=== PATIENT | female | born 1955 | race Caucasian/White ===

== ENCOUNTER → 2023-10-30 08:29 | Outpatient (REF) | payer MEDICARE, OTHER, SELFPAY | LOC: RCS 08:29 | PROVIDERS: ATTENDING PHYSICIAN Internal Medicine Cardiovascular Disease; FAMILY PHYSICIAN Family Medicine | DX: Q21.0 Ventricular septal defect (principal) | CPT/HCPCS: 93306 ==

== ENCOUNTER → 2024-02-09 11:52 | Outpatient (REF) | payer MEDICARE, OTHER, SELFPAY | LOC: WDC 11:52 | PROVIDERS: ATTENDING PHYSICIAN Nurse Practitioner Family; FAMILY PHYSICIAN Family Medicine | DX: Z12.31 Encounter for screening mammogram for malignant neoplasm of breast (principal) | CPT/HCPCS: 77063; 77067 ==

== ENCOUNTER → 2024-05-12 07:15 | Outpatient (REF) | payer MEDICARE, OTHER, SELFPAY | LOC: PAVMRI 07:15 | PROVIDERS: ATTENDING PHYSICIAN Physician Assistant Medical; FAMILY PHYSICIAN Family Medicine | DX: M48.07 Spinal stenosis, lumbosacral region (principal) | CPT/HCPCS: 72148 ==

== ENCOUNTER → 2025-02-21 14:11 | Outpatient (REF) | payer MEDICARE, OTHER, SELFPAY | LOC: WDC 14:11 | PROVIDERS: ATTENDING PHYSICIAN Family Medicine | DX: Z12.31 Encounter for screening mammogram for malignant neoplasm of breast (principal); E78.2 Mixed hyperlipidemia | CPT/HCPCS: 75571; 77063; 77067 ==

== ENCOUNTER → 2025-03-07 12:14 | Outpatient (REF) | payer MEDICARE, OTHER, SELFPAY | LOC: RAD 12:14 | PROVIDERS: ATTENDING PHYSICIAN Family Medicine | DX: I71.20 Thoracic aortic aneurysm, without rupture, unspecified (principal) | CPT/HCPCS: 71275; Q9967 ==

== ENCOUNTER → 2025-03-17 12:58 | Outpatient (REF) | payer MEDICARE, OTHER, SELFPAY | LOC: HWRCS 12:58 | PROVIDERS: ATTENDING PHYSICIAN Internal Medicine Cardiovascular Disease; FAMILY PHYSICIAN Family Medicine | DX: Q21.0 Ventricular septal defect (principal); I77.819 Aortic ectasia, unspecified site; E78.5 Hyperlipidemia, unspecified | CPT/HCPCS: 93306 ==